=== PATIENT | female | born 1950 | race Caucasian/White ===

== ENCOUNTER 2018-10-17 00:04 | Emergency (ER) | payer MEDICARE, OTHER ==
[~2018-10-17] VITALS: Ht 175.3 cm; Wt 103.4 kg
[~2018-10-17 00:04] MED LIST: Amphetamine Sal20 MG; Bupropion Xl150 MG; ERYT.5TO LEFTEYE; LORA2 PO; MOMENI; Norco 5-325 Ta1 EACH PO; RANI150 PO; THYR60; THYROID; TOPI100 PO; TOPI25; VENL25
[2018-10-17] MEDS ORDERED: Armour Thyroid90 MG PO (00:46)
[2018-10-17] MEDS ORDERED: LOTEMAX5 GM OP (00:46)
[2018-10-17] MEDS ORDERED: Venlafaxine HCl75 M1 PO (00:46)
[2018-10-17] MEDS ORDERED: Norco 10-325 T1 EACH PO (00:47)
[2018-10-17] MEDS ORDERED: HYDPAM25 PO (00:47)
[2018-10-17] MEDS ORDERED: AZIT250 PO (00:47)
[2018-10-17] MEDS ORDERED: TOPI100 PO (00:47)
[2018-10-17] MEDS ORDERED: TOLT4 PO (00:47)
[2018-10-17 00:49] LABS: Hematocrit 44.8 % (33.0-51.0); Hemoglobin 14.5 g/dL (11.5-16.0); Mean Corpuscular HGB 27.9 pg (26.0-34.0); Mean Corpuscular HGB Conc 32.4 g/dL (31.5-36.5); Mean Corpuscular Volume 86 fL (80-100); Platelet Count 332 K/mm3 (150-400); RDW Coefficient Variation 14.7 % (11.7-14.2); RDW Standard Deviation 46.9 fL (35.1-46.3); White Blood Cell Count 12.01 K/mm3 (4.00-11.30)
[2018-10-17 01:08] LABS: Albumin/Globulin Ratio 0.7 (0.8-1.8); Bilirubin, Total 0.5 mg/dL (0.1-1.0); Bun/Creatinine Ratio 21.5 (12.0-20.0); Calcium, Blood 9.2 mg/dL (8.5-10.1); Creatinine, Blood 1.07 mg/dL (0.40-1.00); Globulin, Blood 4.1 g/dL (2.2-4.0); Magnesium, Blood 1.9 mg/dL (1.6-2.4); Potassium, Blood 3.5 mmol/L (3.5-5.5); Total Protein, Blood 7.1 g/dL (6.4-8.2)
[2018-10-17 01:12] LABS: BAND PERCENT MAN 33 % (0-8); BASOPHILS PERCENT MAN 0 % (0-2); EOSINOPHILS ABSOLUTE MAN 0.48 K/mm3 (0.00-0.68); EOSINOPHILS PERCENT MAN 4 % (0-6); LYMPHOCYTES ABSOLUTE MAN 1.08 K/mm3 (0.84-5.20); LYMPHOCYTES PERCENT MAN 9 % (21-46); METAMYELOCYTE ABSOLUTE MAN 0.12 K/mm3 (0.00-0.00); METAMYELOCYTE PERCENT MAN 1 % (0-0); MONOCYTES ABSOLUTE MAN 0.84 K/mm3 (0.16-1.47); MONOCYTES PERCENT MAN 7 % (4-13); NEUTROPHILS ABSOLUTE MAN 9.48 K/mm3 (1.96-9.15); SEG NEUTROPHILS PERCENT MAN 46 % (41-73); TOTAL CELLS COUNTED 100
[2018-10-17 02:44] LABS: Source, Urine Clean Catch
[2018-10-17 02:47] LABS: Blood, Urine 1+ (Neg); Glucose Qualitative, Urine Neg (Neg); Ketones, Urine 4+ (Neg); Leukocyte Esterase, Urine 1+ (Neg); Nitrite, Urine Neg (Neg); Protein, Urine 2+ (Neg); Urobilinogen, Urine NORM (Normal)
[2018-10-17 02:56] LABS: Appearance, Urine Hazy (Clear); Bilirubin, Urine 2+ (Neg); Color, Urine Yellow (P-Yellow)
[2018-10-17 02:58] LABS: Amorphous Light (0-Heavy); Bacteria Few /hpf; Hyaline Casts TNTC /lpf (0-2); Red Blood Cells, Urine 0-2 /hpf (0-2); Squamous Epithelial Cells Not Seen /hpf (Few); WBC Cast 0-2 /lpf (0); White Blood Cells, Urine 0-2 /hpf (0-5)
[2018-10-17 04:31] LABS: Adenovirus F 40/41 Not Detected (NOT DETECT); Astrovirus Not Detected (NOT DETECT); Campylobacter Sp Not Detected (NOT DETECT); Cryptosporidium Not Detected (NOT DETECT); Cyclospora Cayetanensis Not Detected (NOT DETECT); E. Coli O157 Not Detected (NOT DETECT); Entamoeba Histolytica Not Detected (NOT DETECT); Enteroaggregative E. coli-EAEC Detected (NOT DETECT); Enteropathogenic E. coli-EPEC Not Detected (NOT DETECT); Enterotoxigenic E. coli-ETEC Not Detected (NOT DETECT); Giardia Lamblia Not Detected (NOT DETECT); Norovirus GI/GII Not Detected (NOT DETECT); Plesiomonas Shigelloides Not Detected (NOT DETECT); Rotavirus A Not Detected (NOT DETECT); Salmonella Sp Not Detected (NOT DETECT); Sapovirus Not Detected (NOT DETECT); Shiga Toxin-prod E. coli-STEC Not Detected (NOT DETECT); Shigella/Enteroin E. coli-EIEC Not Detected (NOT DETECT); Vibrio Cholerae Not Detected (NOT DETECT); Vibrio Sp Not Detected (NOT DETECT); Yersinia Enterocolitica Not Detected (NOT DETECT)
[2018-10-17] MEDS ORDERED: ONDA4ODT MM (04:42)
[2018-10-17] MEDS ORDERED: AZIT500 PO (04:42)
== END 2018-10-17 07:11 | disposition home or self-care (01) ==
LOC: ER 00:04
PROVIDERS: Physician Assistant
DX: A04.4 Other intestinal Escherichia coli infections (principal); J02.9 Acute pharyngitis, unspecified; F41.9 Anxiety disorder, unspecified; F32.9 Major depressive disorder, single episode, unspecified; E03.9 Hypothyroidism, unspecified; Z87.891 Personal history of nicotine dependence
CPT/HCPCS: 36415; 80053; 81001; 83605; 83690; 83735; 85025; 87081; 87086; 87430; 87507; 96361; 96374; 99284-25; J2405; J7030; P9612

== ENCOUNTER → 2020-10-11 | Outpatient (CLI) | payer MEDICARE, OTHER ==
[~2020-10-11] MED LIST changes: +AZIT250 PO; +AZIT500 PO; +Armour Thyroid90 MG PO; +HYDPAM25 PO; +LOTEMAX5 GM OP; +Norco 10-325 T1 EACH PO; +ONDA4ODT MM; +TOLT4 PO; +Venlafaxine HCl75 M1 PO
== END | disposition home or self-care (01) ==
LOC: LAB 14:08 → LAB SHORT 14:08
DX: R22.32 Localized swelling, mass and lump, left upper limb (principal)
CPT/HCPCS: 88304